=== PATIENT | male | born 1945 | race Caucasian/White ===

== ENCOUNTER 2016-08-13 19:42 | Emergency (ER) | payer BC ==
[~2016-08-13] VITALS: Ht 185.4 cm; Wt 105.0 kg
[2016-08-13 19:43] VITALS: BP 198/93; PULSE 80; RESP 16; TEMP 97.8; O2SAT 97
[2016-08-13] MEDS ORDERED: diphenhydrAMINE HCL 50 MG/ML VIAL IVP ONE (20:15)
[2016-08-13] MEDS ORDERED: EPINEPHrine HCL (1:1000) 1 MG/ML VIAL IM ONE (20:15)
[2016-08-13] MEDS ORDERED: methylPREDNISolone SOD SUCC 125 MG/2 ML VIAL IVP ONE (20:15)
[2016-08-13] MEDS ORDERED: SODIUM CHLORIDE 0.9% FLUSH 10 ML FLUSH IV FLUSH PRN (20:15)
[2016-08-13] MEDS ORDERED: FAMOTIDINE 20 MG/2 ML VIAL IV PUSH ONE (20:15)
[2016-08-13] MEDS ORDERED: MULT-6 PO (20:18)
[2016-08-13] MEDS ORDERED: ASPI81CH CHEW (20:18)
[2016-08-13] MEDS ORDERED: FEXO15TA PO (20:18)
[2016-08-13] MEDS ORDERED: METF500T PO (20:18)
[2016-08-13] MEDS ORDERED: OMEGCAP PO (20:18)
[2016-08-13] MEDS ORDERED: PREV15CA15 PO (20:18)
--- NOTE | 2016-08-13 20:18 | PD ---
HPI Chief Complaint: Edema Time Seen by Provider: 20:13 Travel History International Travel<30 days: No Contact w/Intl Traveler<30days: No Traveled to known affect area: No History of Present Illness HPI 71-year-old male with history of diabetes, hyperlipidemia presents to the emergency department for evaluation of swelling of the upper lip. Patient states that this afternoon he noticed a small amount of swelling to the right upper lip. States that it significantly progressed over the past hour. States that he did not eat anything out of the ordinary, denies any new medications. States that he is driving from [place] to [facility] because they' re taking his grandchildren to [place] tomorrow. He states that they did stop at a restaurant this evening but he did not eat any food. States that he did have a pruritic rash along his abdomen this morning when he woke up but that it quickly resolved. He denies any difficulty swallowing, difficulty breathing, excessive drooling. States this has never happened to him before. No other complaints. PFSH Past Medical History Hx Anticoagulant Therapy: Yes (ASA) Diabetes: Yes Social History Tobacco Use: No Allergies-Medications (Allergen,Severity, Reaction): Coded Allergies: No Known Allergies (Unverified , 08/13/16) Reported Meds & Prescriptions Reported Meds & Active Scripts Active Reported Centrum (Multiple Vitamins W/ Minerals) 1 Tab 1 Tab PO DAILY Marla Allergy (Fexofenadine HCl) 180 Mg Tab 180 Mg PO DAILY Aspirin 81 Mg Chew 81 Mg CHEW ONCE [place]-3 Fish Oil/Vitamin (Fish Oil-Cholecalciferol) 1,000-1,000 Mg Cap 1 Cap PO DAILY Prevacid (Lansoprazole) 15 Mg Capdr 15 Mg PO DAILY Metformin (Metformin HCl) 500 Mg Tab 500 Mg PO BIDPC With meals Review of Systems Except as stated in HPI: all other systems reviewed are Neg Physical Exam Narrative GENERAL: Well-nourished and well-developed pleasant patient in no acute distress who is nontoxic appearing. SKIN: Warm and dry. No rash. HEAD: Normocephalic and atraumatic. EYES: No injection, drainage, or hyphema noted. PERRLA. EOMI. ENT: No nasal drainage noted. Swelling of upper lip extending to underneath the nose. No swelling of the tongue. Oropharynx is clear and the airway is patent. NECK: Supple and the trachea is midline. CARDIOVASCULAR: Regular rate and rhythm. RESPIRATORY: Breath sounds are equal bilaterally with no accessory muscle use, wheezing, rhonchi, or crackles. GASTROINTESTINAL: Abdomen is soft, non-tender, and nondistended. MUSCULOSKELETAL: No obvious deformities, swelling, cyanosis, or ecchymosis is present throughout the upper and lower extremities. Patient has full range of motion without any signs of neurovascular compromise. NEUROLOGICAL: Awake, alert, and oriented. Normal speech and gait. Cranial nerves are grossly intact. Data Data Last Documented VS Vital Signs Date Time Temp Pulse Resp B/P Pulse Ox O2 Delivery O2 Flow Rate FiO2 08/13/16 19:43 97.8 80 16 198/93 97 Room Air Orders Ecg Monitoring (08/13/16 20:11) Iv Access Insert/Monitor (08/13/16 20:11) Oximetry (08/13/16 20:11) Diphenhydramine Inj (Benadryl Inj) (08/13/16 20:15) Methylprednisolone So Succ Inj (Solumedr (08/13/16 20:15) Famotidine Inj (Pepcid Inj) (08/13/16 20:15) Sodium Chloride 0.9% Flush (Ns Flush) (08/13/16 20:15) Epinephrine (1:1000) Inj (Adrenalin (1:1 (08/13/16 20:15) MDM Medical Decision Making Medical Screen Exam Complete: Yes Emergency Medical Condition: Yes Differential Diagnosis Allergic reaction versus anaphylaxis versus angioedema Narrative Course 71-year-old male presents to the emergency department for evaluation of upper lip swelling began this afternoon. Patient is afebrile, vital signs are stable. He does have swelling to his upper lip however his airway is patent and he is in no acute distress. IV access is obtained, patient is administered epinephrine, Solu-Medrol, Benadryl and Pepcid. He'll be observed here in the emergency department. Patient reassessed after observed for 2 hours in the ED. His swelling has significantly decreased. Patient has remained stable and without complaint. We 'll prescribe the patient prednisone, Zantac and Benadryl as well as an EpiPen. Patient given instructions on how to use EpiPen as needed for any future severe allergic reactions or anaphylaxis. Patient verbalizes understanding and agreement with treatment plan. I discussed the case with my attending physician Dr. García who is aware of the patients history, physical examination findings, and treatment plan. Diagnosis Primary Impression: Allergic reaction Qualified Code: T78.40XA - Allergic reaction, initial encounter Referrals: Primary Care Physician Patient Instructions: General Allergic Reaction (ED), General Instructions Additional Instructions: Take medications as prescribed. Epi pen prescribed only as needed for severe allergic reactions. Follow-up with your Primary Care Physician. Return to the ED for any acute worsening of symptoms. Med/Other Pt SpecificInfo: Prescription(s) given Scripts Epinephrine Inj (Epipen 2-Dhiraj Inj)0.3 Mg/0.3 Ml Pfpen0.3 Mg IM ONCE PRN ( ALLERGIC REACTION) #1 PACK Ref 0 Prov:Cole García MD 08/13/16 Diphenhydramine (Benadryl Allergy)25 Mg Tab25 Mg PO Q6H PRN (ALLERGIES) 5 Days Ref 0 Prov:Cole García MD 08/13/16 Ranitidine (Zantac)150 Mg Sly077 Mg PO BID 5 Days Ref 0 Prov:Cole García MD 08/13/16 Prednisone 20 Mg Tab20 Mg PO BID 5 Days Ref 0 Prov:Cole García MD 08/13/16 Disposition: 01 DISCHARGE HOME Condition: Stable Paola Samaniego Aug 13, 2016 20:18
[2016-08-13] MEDS ORDERED: BENA25TA3 PO (22:12)
[2016-08-13] MEDS ORDERED: ZANT150T2 PO (22:12)
[2016-08-13] MEDS ORDERED: PRED20 PO (22:12)
[2016-08-13] MEDS ORDERED: EPIP0.3I IM (22:12)
== END 2016-08-13 22:42 | disposition home or self-care (01) ==
LOC: NEPC 19:42
DX: T78.40XA Allergy, unspecified, initial encounter (principal); R21 Rash and other nonspecific skin eruption; E78.5 Hyperlipidemia, unspecified; E11.9 Type 2 diabetes mellitus without complications; Z79.82 Long term (current) use of aspirin
CPT/HCPCS: 96372; 96374; 96375; 99283; J0171; J1200; J2930